=== PATIENT | female | born 1975 | race Caucasian/White ===

== ENCOUNTER → 2016-09-02 | Outpatient (CLI) | payer OTHER ==
[~2016-09-02] MED LIST: GADOBUTROL 10 MMOL/10 ML (GADAVIST) VIAL IV ONE
--- NOTE | 2016-09-02 13:59 | Diagnostic Imaging Report ---
PROCEDURE: MR imaging of the brain with and without contrast. TECHNIQUE: Multiplanar, multisequence MR imaging of the brain was performed with and without contrast. INDICATION: Left-sided trigeminal neuralgia. Left facial numbness. Vertigo. Diminished vision in the left eye. 9 mL of Gadovist is administered intravenously. FINDINGS: There is no diffusion restriction to suggest an acute infarct or other diffusion abnormality. The brain parenchyma has normal signal in the otto and white matter. There is no hydrocephalus. No extra-axial fluid collection. There are preserved central vascular flow voids. The internal auditory canals and inner ear structures appear symmetric. The pituitary gland is normal in size. No hypothalamic or pineal region mass. No cerebellopontine mass is seen. The Meckel's cave region and the cavernous sinuses area appear unremarkable. The cerebellar tonsils are projecting inferiorly into the foramen magnum by about 5 mm compatible with cerebellar ectopia. This results in crowded appearance at the foramen magnum of the tonsils and the lower aspect of the brainstem with no compression seen however. The orbits and the visualized portions of the paranasal sinuses appear grossly unremarkable. IMPRESSION: There is cerebellar tonsillar ectopia. No enhancing mass. No acute infarct. Dictated by: Dictated on workstation # [id number]
== END ==
LOC: RAD 11:14
PROVIDERS: ATTEND Nurse Practitioner Family
DX: G50.0 Trigeminal neuralgia (principal)
CPT/HCPCS: 70553